=== PATIENT | female | born 1975 | race Caucasian/White ===

== ENCOUNTER 2020-01-19 08:07 | Emergency (ER) | payer MEDICAID, OTHER ==
[~2020-01-19] VITALS: Ht 172.7 cm; Wt 68.1 kg
[2020-01-19 08:12] VITALS: BP 152/110
[2020-01-19] MEDS ORDERED: AMOX500C2 PO (08:19)
--- NOTE | 2020-01-19 08:20 | ED EENT ---
History of Present Illness General Stated Complaint: DENTAL PAIN Source: patient Exam Limitations: no limitations History of Present Illness Date Seen by Provider: Jan 19, 2020 Time Seen by Provider: 08:10 Initial Comments Patient to the ER by private conveyance with chief complaint of 3-4 days progressively worsening pain in her left upper incisor tooth secondary to dental caries. She's been calling to get in with a dentist. She has not been on antibiotics. No fevers or chills. No nausea or vomiting. Allergies and Home Medications Allergies Coded Allergies: No Known Drug Allergies (Unverified , 01/19/20) Home Medications Amoxicillin 500 Mg Capsule, 500 MG PO TID Prescribed by: JON MARTINO on 01/19/20 08 [Viscous Lidocaine] 2% BOTTLE, 1 GM MM Q6H PRN for PAIN-BREAKTHROUGH Prescribed by: JON MARTINO on 01/19/20 0821 Patient Home Medication List Home Medication List Reviewed: Yes Review of Systems Review of Systems Constitutional: No chills, No diaphoresis Eyes: Denies Blindness, Denies Drainage Ears: Denies Dizziness, Denies Pain Nose: denies clots, denies congestion All Other Systems Reviewed Negative Unless Noted: Yes Past Rlzhoge-Rpxlpm-Qcuaow Hx Patient Social History Alcohol Use: Denies Use Recreational Drug Use: No Smoking Status: Current Everyday Smoker Type Used: Cigarettes Recent Foreign Travel: No Contact w/Someone Who Travel: No Physical Exam Height, Weight, BMI Height: '" Weight: lbs. oz. kg; BMI Method: General Appearance: WD/WN, mild distress Eyes: bilateral eye normal inspection, bilateral eye PERRL, bilateral eye EOMI Ears: bilateral ear auricle normal, bilateral ear canal normal, bilateral ear TM normal Mouth/Throat: other (gauze packed over a dental caries left upper maxilla without pointing or palpable fluctuance) Respiratory: no respiratory distress, no accessory muscle use Neurologic/Psychiatric: alert, normal mood/affect Departure Impression Primary Impression: Dental abscess Disposition: 01 HOME, SELF-CARE Condition: Stable Departure-Patient Inst. Decision time for Depature: 08:15 Patient Instructions: Tooth Abscess (DC) Add. Discharge Instructions: Warm moist heat applied directly to the face over the tooth in question. Pack 1 g of viscous lidocaine on fresh gauze over the tooth every 6 hours as necessary for pain relief. [id number] topical tooth pain relief as necessary. Tylenol 1000 mg every 8 hours as necessary for pain. Ibuprofen 800 mg every 8 hours as necessary for pain. Amoxicillin one capsule 3 times a day with food for the next week. Expect improvement over the next 3-4 days. Follow-up with a dentist. Scripts [Viscous Lidocaine] 2% BOTTLE No Conflict Check 1 GM MM Q6H PRN for PAIN-BREAKTHROUGH, #30 GM 0 Refills Prov: JON MARTINO 01/19/20 Amoxicillin (Amoxicillin) 500 Mg Capsule 500 MG PO TID, #21 CAP 0 Refills Prov: JON MARTINO 01/19/20 JON MARTINO Jan 19, 2020 08:20
[2020-01-19] MEDS ORDERED: Viscous Lidocaine MM (08:21)
== END 2020-01-19 08:25 | disposition home or self-care (01) ==
LOC: ER 08:10
DX: K04.7 Periapical abscess without sinus (principal); F17.210 Nicotine dependence, cigarettes, uncomplicated
CPT/HCPCS: 99282